=== PATIENT | female | born 1990 | race Hispanic/Latino ===

== ENCOUNTER 2017-10-12 11:26 | Emergency (ER) | payer BC ==
[2017-10-12] MEDS ORDERED: Ondansetron ODT 4 MG TAB ONE (11:57)
[2017-10-12 12:18] LABS: #Lymphocytes 1.4 thou/uL (1.20-3.40); #Monocytes 0.3 thou/uL (0.11-0.59); %Basophils 0.4 % (0.0-1.0); %Lymphocytes 17.5 % (21.0-51.0); %Monocytes 4.4 % (0.0-10.0); Hematocrit 37.8 % (36.0-47.0); Mean Platelet Volume 7.8 fL (7.4-10.4); Red Blood Cell (RBC) Count 4.32 mill/uL (4.20-5.40); White Blood Cell (WBC) Count 7.8 thou/uL (4.8-10.8)
[2017-10-12 12:33] LABS: ALT (SGPT) 28 U/L (8-55); AST (SGOT) 24 U/L (5-34); Alkaline Phosphatase 93 U/L (40-150); Anion Gap 21 mmol/L (10-20); BUN (Urea Nitrogen) 18 mg/dL (7.0-18.7); Bilirubin, Total 0.3 mg/dL (0.2-1.2); Calc. Creatinine Clearance 0 mL/min (70-130); Calcium 9.5 mg/dL (7.8-10.44); Carbon Dioxide 19 mmol/L (22-29); Chloride 106 mmol/L (98-107); Estimated GFR-MDRD Greater than 90; Globulin 3.4 g/dL (2.4-3.5); Protein, Total 8.2 g/dL (6.0-8.3)
[2017-10-12] MEDS ORDERED: Ondansetron HCl/PF 4 MG/2 ML Vial ONE (12:45)
== END 2017-10-12 13:12 | disposition home or self-care (01) ==
LOC: SCSER 11:26
DX: E86.0 Dehydration (principal); F17.210 Nicotine dependence, cigarettes, uncomplicated; F41.9 Anxiety disorder, unspecified
CPT/HCPCS: 80053; 85025; 96361; 96374; J2405; Q0162

== ENCOUNTER 2020-08-20 12:51 | Inpatient (IN) | payer OTHER ==
[2020-08-20] MEDS ORDERED: Ondansetron PF 4 MG/2 ML Vial ONE (14:00)
[2020-08-20 14:31] LABS: Hemoglobin 11.7 g/dL (12.0-16.0); Mean Corpuscular HGB CONC 35.6 g/dL (32.0-36.0); Mean Corpuscular Hemoglobin 31.1 pg (27.0-31.0); Mean Corpuscular Volume 87.5 fL (78.0-98.0); Mean Platelet Volume 8.9 fL (7.4-10.4); Platelet Count 246 thou/uL (130-400); RBC Distribution Width 12.9 % (11.5-14.5); Red Blood Cell (RBC) Count 3.77 mill/uL (4.20-5.40); White Blood Cell (WBC) Count 7.7 thou/uL (4.8-10.8)
[2020-08-20 14:43] LABS: Bilirubin Negative (Negative); Blood, Urine Negative (Negative); Clarity Clear (Clear); Glucose, Urine (Dipstick) Normal (Negative); Ketone, Urine Greater than 150 mg/dL (Negative); Leukocyte Negative Leu/uL (Negative); Nitrite Negative (Negative); Protein, Urine (Dipstick) 10 mg/dL (Neg-Trace); Specific Gravity, Urine 1.019 (1.002-1.036); Urobilinogen Normal mg/dL (Less than 2); pH, Urine 7.5 (5.0-9.0)
[2020-08-20 14:49] LABS: ALT (SGPT) 26 U/L (8-55); AST (SGOT) 29 U/L (5-34); Albumin 3.8 g/dL (3.5-5.0); Alkaline Phosphatase 54 U/L (40-110); Anion Gap 14 mmol/L (10-20); BUN (Urea Nitrogen) 8 mg/dL (7.0-18.7); Bilirubin, Total 0.3 mg/dL (0.2-1.2); CK (CPK) 35 U/L (29-168); Calc. Creatinine Clearance 0 mL/min (70-130); Carbon Dioxide 20 mmol/L (22-29); Chloride 104 mmol/L (98-107); Estimated GFR-MDRD Greater than 90; Globulin 3.7 g/dL (2.4-3.5); Glucose 86 mg/dL (70-105); Lipase 32 U/L (8-78); Potassium 4.2 mmol/L (3.5-5.1); Protein, Total 7.5 g/dL (6.0-8.3); Sodium 134 mmol/L (136-145)
[2020-08-20 14:57] LABS: Band 21 % (5-11); Lymphocytes 10 % (21-51); MDiff Complete? YES; Monocytes 2 % (0-10); Neutrophil 67 % (42-75); Platelet Morphology Comment Appears Adequate; RBC Morphology Normal
[2020-08-20] MEDS ORDERED: Promethazine HCl 25 MG/ML VIAL ONE (16:25)
[2020-08-20] MEDS ORDERED: Acetaminophen 325 MG TAB PO PRN (18:31)
[2020-08-20] MEDS ORDERED: Ondansetron ODT 4 MG TAB PO PRN (18:31)
--- NOTE | 2020-08-20 20:26 | HP ---
CHIEF COMPLAINT: Nausea and vomiting. HISTORY OF PRESENT ILLNESS: This is a 29-year-old, G5, P2-0-2-2, at approximately 14 weeks gestation with what sounds like monozygotic diamniotic twins. She has a history of significant nausea and vomiting that she has been treated outpatient by her doctor at [facility], Dr. Pal, but was unable to keep anything down for the last couple of days. She is an inmate and was [facility]. She does endorse some lower abdominal cramping. She had bleeding earlier in the , but is not having any now. REVIEW OF SYSTEMS: Negative for head, eyes, ears, nose, throat, cardiovascular, respiratory, GI, , neuropsych, musculoskeletal, skin, or constitutional symptoms other than mentioned above. PAST MEDICAL HISTORY: 1. Anxiety. 2. Headaches. PAST SURGICAL HISTORY: x1. [employer]CH[employer]ICIAN HISTORY: Vaginal delivery x1. x1. Elective termination of x2. MEDICATIONS: 1. vitamin 2. Antibiotic, unsure of name ALLERGIES: NKDA SOCIAL HISTORY: Denies tobacco, alcohol, or drug abuse. She is currently in [facility] and will be out in 2 days. PHYSICAL EXAMINATION: VITAL SIGNS: Afebrile with normal vital signs. GENERAL: Awake, alert, in no acute distress. CHEST: Nonlabored breathing. ABDOMEN: Soft. Nontender to palpation. No guarding. No rebound. Pelvic exam deferred. LABORATORY: Sodium 134, otherwise unremarkable; urine with greater than 150 ketones. ASSESSMENT AND PLAN: A 29-year-old, G5, P2-0-2-2, at approximately 14 weeks gestation with twins with hyperemesis gravidarum. Admit for IV fluids and start a regimen of pyridoxine and doxylamine as well as Zofran. We will get records from [facility]. We will consider ultrasound in the morning if needed. Job ID: [id number] [facility]
[2020-08-20] MEDS ORDERED: Doxylamine 25 MG TAB PO SCH (21:00)
[2020-08-20] MEDS: Sodium Chloride 0.9% 1,000 ML IV SCH (21:24)
[2020-08-20] MEDS: Ondansetron PF 4 MG/2 ML Vial IVP PRN (21:53)
[2020-08-20] MEDS: Famotidine 20 MG TAB PO SCH (21:55)
[2020-08-21] MEDS: pyridOXINE 50 MG (B6) TAB PO SCH ×3 (00:55→07:12)
[2020-08-21] MEDS: Famotidine/PF 20 mg/2ml Vial SLOW IVP SCH ×3 (01:00→21:18)
[2020-08-21] MEDS: Sodium Chloride 0.9% 1,000 ML IV SCH ×2 (05:00→11:40)
[2020-08-21 07:22] VITALS: BMI 24.9
[2020-08-21] MEDS: Ondansetron PF 4 MG/2 ML Vial IVP PRN (07:44)
[2020-08-21] MEDS: Famotidine 20 MG TAB PO SCH ×2 (07:47→21:18)
--- NOTE | 2020-08-21 08:12 | PDOC.BPN ---
- Brief Progress Note Encounter Date: 08/21/20 Encounter Time: 07:40 S: Feeling ok this morning. Had episode of emesis after drinking simin jessie this morning. No emesis overnight. Feels a little sore but not cramping. No bleeding. O: Vital Signs - Most Recent Temp Pulse Resp BP Pulse Ox 98.5 F 73 18 100/50 L 98 08/21/20 00:30 08/21/20 00:30 08/21/20 00:30 08/21/20 00:30 08/20/20 20:13 Gen - AAO, NAD Abd - soft, mildly TTP of lower abdomen. A/P: 29 y/o at 14w with 1. Hyperemesis - will add Reglan PO QAC to regimen this morning. Continue B6 and doxylamine and zofran. 2. Twins - ALBERTO sent, awaiting records. 3. Inmate - Case management consult ordered Continue to monitor.
[2020-08-21 10:42] LABS: SARS-CoV-2 MS2 Positive; SARS-CoV-2 N Gene Negative; SARS-CoV-2 S Gene Negative; SARS-CoV-2 by NAA Not Detected (NotDetected); SARS-CoV-2 orf1ab Negative
--- NOTE | 2020-08-21 11:27 | PDOC.EVN ---
Event Note - Event Note Event Note: CAlled to bedside for nausea/vomiting. Pt reports small volume. unable to keep food down. Will discontinue b6 and doxylamine. reglan and benadryl scheduled. D5LR. 125cc. npo until appetite.
[2020-08-21] MEDS ORDERED: Metoclopramide HCl 10 MG TAB PO SCH (11:30)
[2020-08-21] MEDS: diphenhydrAMINE 50 MG/ML VIAL IVP SCH ×3 (11:48→21:18)
[2020-08-21] MEDS: Dextrose 5 % And 0.9 % NaCl 1,000 ML IV SCH ×2 (11:49→19:00)
[2020-08-21] MEDS ORDERED: Metoclopramide HCl 10 MG/2 ML VIAL IVP SCH (14:00)
[2020-08-21] MEDS ORDERED: Fleet Enema 133 ML BOT PR PRN (16:30)
[2020-08-21] MEDS ORDERED: Milk Of Magnesia 30 ML UDCUP PO SCH (16:30)
[2020-08-21] MEDS: Metoclopramide HCl 10 MG/2 ML VIAL IVP SCH (19:43)
[2020-08-21] MEDS: metroNIDAZOLE 0.75% 70 GM TUBE VAG SCH (21:17)
[2020-08-22] MEDS: diphenhydrAMINE 50 MG/ML VIAL IVP SCH ×6 (01:15→21:31)
[2020-08-22] MEDS: Metoclopramide HCl 10 MG/2 ML VIAL IVP SCH ×3 (04:29→20:06)
[2020-08-22] MEDS: Lactated Ringer's 1,000 ML IV SCH ×3 (04:29→18:08)
--- NOTE | 2020-08-22 08:02 | PRG ---
DATE OF SERVICE: 08/22/2020 SUBJECTIVE: The patient is a 29-year-old G5, P2 female with an intrauterine twin gestation, who presented to the hospital with nausea and vomiting. Earlier in the day, I was called to the room with concerns that the patient was still having nausea and vomiting and not feeling well. In further discussion, the patient also has a history of pretty bad constipation. We switched her antiemetics to scheduled Benadryl and Reglan and attempted milk of magnesia without success and gave her an enema after which she has had several large bowel movements and is feeling somewhat better. The patient has had no vomiting since then and reports some nausea but was able to maintain Jell-O in the evening. The patient reports she still has no appetite. OBJECTIVE: VITAL SIGNS: This morning blood pressure is 110/60, temperature 98.1, pulse of 68, respiratory rate 18. GENERAL: She appears to be in no acute distress. She is alert and oriented, cooperative, and pleasant to interact with. ASSESSMENT AND PLAN: The patient is a 29-year-old G5, P2 female with a twin gestation, who is presenting to Labor and Delivery for persistent nausea and vomiting. After evacuating her bowels and changing her regimen to scheduled Benadryl and Reglan, the patient reports that she is overall feeling much better. She does report some nausea, but has not had any more vomiting. Plan today is a trial of p.o. diet when she feels a desire to eat. If p.o. is tolerated, we will switch her to p.o. Reglan and Benadryl on a scheduled basis and if that continues to be well tolerated, we will plan for discharge home hopefully in the next 24 hours. Job ID: [id number]
[2020-08-22] MEDS: Famotidine/PF 20 mg/2ml Vial SLOW IVP SCH ×2 (09:14→21:33)
[2020-08-22] MEDS: Famotidine 20 MG TAB PO SCH (09:15)
[2020-08-22] MEDS: metroNIDAZOLE 0.75% 70 GM TUBE VAG SCH (22:47)
[2020-08-23] MEDS: diphenhydrAMINE 50 MG/ML VIAL IVP SCH ×2 (01:02→05:07)
[2020-08-23] MEDS: Lactated Ringer's 1,000 ML IV SCH ×4 (03:03→21:03)
[2020-08-23] MEDS: Famotidine 20 MG TAB PO SCH ×3 (04:59→21:00)
[2020-08-23] MEDS: Metoclopramide HCl 10 MG/2 ML VIAL IVP SCH (05:08)
--- NOTE | 2020-08-23 06:33 | PDOC.EVN ---
Event Note - Event Note Event Note: Feeling better this AM. No N/V since last night. VSS AF Abdomen is soft, NT. No bleeding. Plan: Advance diet, change Benadryl and Reglan to PO.
[2020-08-23] MEDS ORDERED: diphenhydrAMINE 25 MG CAP PO SCH (07:00)
[2020-08-23] MEDS: diphenhydrAMINE 25 MG CAP PO SCH ×2 (11:06→17:53)
[2020-08-23] MEDS: Famotidine/PF 20 mg/2ml Vial SLOW IVP SCH ×2 (11:07→21:00)
[2020-08-23] MEDS: Metoclopramide HCl 10 MG TAB PO SCH ×2 (12:50→17:54)
[2020-08-23] MEDS: diphenhydrAMINE 50 MG/ML VIAL IVP PRN ×2 (18:15→19:22)
[2020-08-23] MEDS: Metoclopramide HCl 10 MG/2 ML VIAL IVP PRN ×4 (18:20→20:01)
[2020-08-23] MEDS ORDERED: Sodium Chloride 0.9% 10 ML ONE (18:46)
[2020-08-23] MEDS: metroNIDAZOLE 0.75% 70 GM TUBE VAG SCH (20:58)
[2020-08-24] MEDS: Famotidine 20 MG TAB PO SCH (08:11)
[2020-08-24] MEDS: diphenhydrAMINE 25 MG CAP PO SCH ×2 (08:12→12:57)
[2020-08-24] MEDS: Metoclopramide HCl 10 MG TAB PO SCH ×2 (08:12→12:05)
[2020-08-24] MEDS: Lactated Ringer's 1,000 ML IV SCH (08:17)
[2020-08-24] MEDS: Famotidine/PF 20 mg/2ml Vial SLOW IVP SCH (08:27)
--- NOTE | 2020-08-24 08:53 | PRG ---
DATE OF SERVICE: 08/24/2020 SUBJECTIVE: The patient is a 29-year-old female, with an intrauterine at approximately 14 weeks' gestation, admitted for nausea and vomiting in . The patient has required multiple antiemetics and has been on scheduled Reglan and Benadryl for the last 24 hours. Yesterday afternoon, the patient experienced a severe migraine, which she has been getting since age 9. We used a migraine protocol with Reglan and Benadryl over a 2-hour period. This seemed to break the headache and she is feeling much better this morning. The patient reports she has an appetite this morning and would like to try eating. We did switch her over to p.o. Benadryl and Reglan this morning as well. PHYSICAL EXAMINATION: VITAL SIGNS: Blood pressure is 110/61, temperature 98.1, pulse is 60, and respiratory rate of 18. GENERAL: She appears to be in no acute distress. She is alert, oriented, cooperative, and pleasant to interact with. HEAD: Normocephalic, atraumatic. ASSESSMENT AND PLAN: The patient is a 29-year-old female with a twin gestation at 14 weeks, who was admitted several days ago for nausea and vomiting. This morning is the first day that she has had significant appetite. We will be attempting p.o. and I have changed her regimen to p.o. scheduled. After lunch, the patient can be reassessed. If she is tolerating her meals well, she can be sent home. I did ask her to call her OB provider, Dr. Pal at [facility] to make a followup visit in the next few days. Job ID: [id number]
[2020-08-24 12:36] VITALS: BP 106/56; TEMP 98.5
--- NOTE | 2020-08-24 15:51 | DIS ---
DATE OF ADMISSION: 08/23/2020 DATE OF DISCHARGE: 08/24/2020 SUMMARY OF HOSPITAL COURSE: The patient was admitted at 14 weeks with hyperemesis gravidarum. The course was complicated by difficulty in achieving good control of the patient's hyperemesis. Ultimately, she was controlled well with Reglan 10 mg p.o. t.i.d. and Benadryl 25 mg p.o. b.i.d. She was discharged home on these with oral medications. Temperature on discharge 98.5, pulse 64, respirations 16, blood pressure 106/56. The patient's weight was stable throughout her hospitalization. She is going to follow up with Dr. Pal. Hussain ID: [id number]
== END 2020-08-24 16:27 | disposition home or self-care (01) | DRG 833 ==
LOC: ERS 12:51 → EEVIPCON 12:51 → 3SW 18:36 → OBSVTOIN 08-23 10:36
PROVIDERS: ADMIT Obstetrics & Gynecology; ATTEND Obstetrics & Gynecology
DX: O21.0 Mild hyperemesis gravidarum (principal); O99.344 Other mental disorders complicating childbirth; F41.9 Anxiety disorder, unspecified; O30.001 Twin pregnancy, unspecified number of placenta and unspecified number of amniotic sacs, first trimester; Z20.828 Contact with and (suspected) exposure to other viral communicable diseases; Z3A.14 14 weeks gestation of pregnancy; Z37.0 Single live birth
CPT/HCPCS: 80053; 81003; 82550; 83690; 85025; 87635; J1200; J2405; J2550; J2765; Q0163; S0028; U0003